=== PATIENT | female | born 1970 | race Caucasian/White ===

== ENCOUNTER 2019-10-21 12:45 | Emergency (ER) | payer BC, OTHER ==
[2019-10-21 12:57] VITALS: BP 137/98; PULSE 93; TEMP 99; BMI 27.3
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
[2019-10-21] MEDS ORDERED: IBUPROFEN 400 MG TABLET (FP) PO ONE ×2 (13:10→13:19)
[2019-10-21] MEDS ORDERED: LIDOCAINE 5% TOPICAL PATCH TP ONE (13:10)
[2019-10-21] MEDS ORDERED: LIDOCAINE 5% TOPICAL PATCH ONE (13:15)
[2019-10-21] MEDS ORDERED: DIPHTH,PERTUSS(ACELL),TET 0.5 ML DISP.SYRIN IM ONE ×2 (14:10→14:11)
[2019-10-21] MEDS ORDERED: LIDOCAINE PATCH REMOVAL MC SCH (22:00)
== END 2019-10-21 14:05 | disposition home or self-care (01) ==
LOC: FER 12:45
PROC: 3E0234Z Introduction of Serum, Toxoid and Vaccine into Muscle, Percutaneous Approach (ICD-10-PCS; principal; 2019-10-21)
DX: R07.89 Other chest pain (principal); M54.5 Low back pain; V87.7XXA Person injured in collision between other specified motor vehicles (traffic), initial encounter
CPT/HCPCS: 71046-TC-FY; 81025; 90715; 99284-25

== ENCOUNTER 2023-04-24 04:06 | Day surgery (SDC) | payer BC ==
[2023-04-22 16:16] VITALS: BMI 25.7
[2023-04-24 08:47] VITALS: TEMP 99.5
[2023-04-24 09:11] VITALS: BP 100/61; PULSE 69; RESP 15
[2023-04-24 10:44] LABS: POTASSIUM 3.8 mmol/L (3.5-5.1)
[2023-04-24 10:50] LABS: ALBUMIN 3.4 g/dl (3.4-5.0); BLOOD UREA NITROGEN 8.3 mg/dL (7-18); CALCIUM 8.5 mg/dL (8.5-10.1)
[2023-04-24 10:54] LABS: CREATININE 0.7 mg/dL (0.55-1.3)
[2023-04-24 10:55] LABS: BILIRUBIN,TOTAL 1.7 mg/dL (0.2-1); TOT PROT 6.4 g/dl (6.4-8.2)
== END 2023-04-24 09:15 | disposition home or self-care (01) ==
LOC: JASU-ENDO 04:06
PROVIDERS: ATTEND Internal Medicine Gastroenterology
PROC: 0DBN8ZX Excision of Sigmoid Colon, Via Natural or Artificial Opening Endoscopic, Diagnostic (ICD-10-PCS; 2023-04-24)
PROC: 0DBP8ZX Excision of Rectum, Via Natural or Artificial Opening Endoscopic, Diagnostic (ICD-10-PCS; principal; 2023-04-24 08:00)
DX: Z12.11 Encounter for screening for malignant neoplasm of colon (principal); K62.1 Rectal polyp; D12.7 Benign neoplasm of rectosigmoid junction; K64.8 Other hemorrhoids
CPT/HCPCS: 36415; 80053; 81025; 88305-TC

== ENCOUNTER 2023-05-22 04:12 | Day surgery (SDC) | payer BC ==
[2023-05-19 11:52] VITALS: BMI 25.2
[2023-05-22 08:14] VITALS: TEMP 98.2
[2023-05-22 10:05] VITALS: BP 118/68; PULSE 54; RESP 14
== END 2023-05-22 10:13 | disposition home or self-care (01) ==
LOC: JASU-ENDO 04:12
PROVIDERS: ATTEND Internal Medicine Gastroenterology
PROC: 0DB78ZX Excision of Stomach, Pylorus, Via Natural or Artificial Opening Endoscopic, Diagnostic (ICD-10-PCS; 2023-05-22)
PROC: 0DB68ZX Excision of Stomach, Via Natural or Artificial Opening Endoscopic, Diagnostic (ICD-10-PCS; 2023-05-22)
PROC: 0DB98ZX Excision of Duodenum, Via Natural or Artificial Opening Endoscopic, Diagnostic (ICD-10-PCS; principal; 2023-05-22 08:45)
DX: R10.13 Epigastric pain (principal); K29.50 Unspecified chronic gastritis without bleeding
CPT/HCPCS: 81025; 88305-TC; 88342-TC

== ENCOUNTER 2023-12-02 19:05 | Emergency (ER) | payer BC ==
[2023-12-02 19:18] VITALS: BP 155/84; PULSE 89; RESP 18; TEMP 99.1; BMI 27.6
[2023-12-02] MEDS ORDERED: KETOROLAC TROMETHAMINE 30 MG/1 ML VIAL ONE (19:58)
[2023-12-02] MEDS: SODIUM CHLORIDE 1,000 ML IV ONE (20:00)
[2023-12-02] MEDS: KETOROLAC TROMETHAMINE 30 MG/1 ML VIAL IVPUSH ONE (20:00)
[2023-12-02 20:04] LABS: HEMATOCRIT 41.3 % (32.4-45.2); HEMOGLOBIN 13.2 G/dL (10.7-15.3); MCHC 31.9 g/dl (32.0-36.0); MEAN CELL VOLUME 90.8 fl (80-96); MEAN PLT VOLUME 7.4 fl (7.5-11.1); PLATELET COUNT 250.9 10^3/uL (134-434); RBC 4.55 10^6/uL (3.60-5.2); RDW 14.1 % (11.6-15.6); WHITE BLOOD COUNT 12.7 10^3/uL (4.0-10.8)
[2023-12-02] MEDS: ONDANSETRON 4 MG/2 ML VIAL IVPUSH ONE (20:06)
[2023-12-02 20:25] LABS: ALBUMIN 4.8 g/dl (3.4-5.0); CALCIUM 9.9 mg/dl (8.5-10.1); CREATININE 0.9 mg/dl (0.6-1.3); TOT PROT 7.5 g/dl (6.4-8.2)
== END 2023-12-02 22:10 | disposition home or self-care (01) ==
LOC: FER 19:05
PROC: 3E0333Z Introduction of Anti-inflammatory into Peripheral Vein, Percutaneous Approach (ICD-10-PCS; principal; 2023-12-02)
PROC: 3E0337Z Introduction of Electrolytic and Water Balance Substance into Peripheral Vein, Percutaneous Approach (ICD-10-PCS; 2023-12-02)
DX: R10.31 Right lower quadrant pain (principal); N13.2 Hydronephrosis with renal and ureteral calculous obstruction
CPT/HCPCS: 36415; 74176-TC; 80053; 81003; 81015; 81025; 85027; 87086; 99284-25